=== PATIENT | female | born 1985 | race Caucasian/White ===

== ENCOUNTER 2018-09-04 18:10 | Outpatient (CLI) | payer OTHER, SELFPAY ==
[2018-09-04 18:29] VITALS: BMI 33.0
--- NOTE | 2018-09-06 07:03 | OB.TRI.NOTE ---
- Problem List (1) Decreased movement Status: Acute History of Present Illness Date of Service: 09/04/18 Was patient seen by the physician?: No Reason For Visit: DECREASED MOVEMENT Final CARROLL: 10/23/18 Gestational age: 33 Weeks and 2 Days History of Present Illness: Pt presents with DFM Allergies No Known Allergies Allergy (Verified 09/04/18 18:36) NST - FHR Rate Baby A Baseline: 120 Variability:: Moderate Accelerations:: 15 x 15 Decelerations:: None NST Reactive:: Yes Uterine Activity:: Quiet Impression/Plan - Pt feeling FM prior to discharge - NST reactive
== END 2018-09-04 18:55 | disposition home or self-care (01) ==
LOC: WPOUT 18:23 → WP 18:25
PROVIDERS: Family Provider Family Medicine; PCP Family Medicine; Referring Provider Obstetrics & Gynecology; Visit Provider Obstetrics & Gynecology
DX: O36.8130 Decreased fetal movements, third trimester, not applicable or unspecified (principal); Z3A.33 33 weeks gestation of pregnancy
CPT/HCPCS: 59025; 59050; 99218; G0378

== ENCOUNTER 2018-10-18 17:25 | Outpatient (CLI) | payer OTHER, SELFPAY ==
[2018-10-18 17:57] VITALS: BMI 34.2
--- NOTE | 2018-10-19 07:14 | OB.TRI.NOTE ---
History of Present Illness Was patient seen by the physician?: No Reason For Visit: RULE OUT LABOR Date of Service: 10/18/18 Final CARROLL: 10/23/18 Gestational age: 39 Weeks and 3 Days Allergies No Known Allergies Allergy (Verified 10/18/18 17:59) NST - FHR Rate Baby A Baseline: 125 Variability:: Moderate Accelerations:: 15 x 15 Decelerations:: None NST Reactive:: Yes Uterine Activity:: irregular Impression/Plan Reactive NST for false labor
== END 2018-10-18 19:30 | disposition home or self-care (01) ==
LOC: WPOUT 17:48 → WP 17:49
PROVIDERS: Family Provider Family Medicine; PCP Family Medicine; Referring Provider Obstetrics & Gynecology; Visit Provider Obstetrics & Gynecology
DX: O47.1 False labor at or after 37 completed weeks of gestation (principal); Z3A.39 39 weeks gestation of pregnancy
CPT/HCPCS: 59025; 59050; 99218; G0378

== ENCOUNTER 2018-10-22 06:55 | Inpatient (IN) | payer OTHER, SELFPAY ==
[2018-10-22] MEDS: Lactated Ringers 1,000 ML 50 ML IV ×2 (08:00→09:31)
[2018-10-22 08:35] VITALS: BMI 35.0
[2018-10-22 08:46] LABS: Absolute Lymphocyte Count 2.15 X10^3/uL (0.83-4.51); Absolute Neutrophil Count 9.6 X10^3/uL (2.0-7.7); Basophil# 0.05 X10^3/uL; Basophil% 0.4 % (0-1); Eosinophil# 0.15 X10^3/uL; Eosinophils% 1.2 % (0-5); Hematocrit 37.9 % (37-47); Hemoglobin 12.9 g/dL (12.0-15.0); Lymphocyte # 2.15 X10^3/ul (4.0); Lymphocyte % 16.5 % (19-41); Mean Corpuscular Hgb 29.9 pg (27.0-32.0); Mean Corpuscular Volume 87.9 fL (81-99); Mean Platelet Vol. 8.7 fl (6.2-12.0); Monocyte# 0.94 X10^3/uL; Monocyte% 7.2 % (0-10); NRBC Flagged by Analyzer 0 % (0-5); Neutrophil # 9.56 X10^3/uL (2.7-7.7); Neutrophil % 73.3 % (47-70); Platelet Count 249 K/mm3 (150-450); RBC Distribution Width CV 13.7 % (11.6-14.6); Red Blood Count 4.31 M/mm3 (4.2-5.4)
[2018-10-22] MEDS: Oxytocin 30 units/NS 500 ml 30 UNITS/500 ML IV.SOLN IV (09:40)
--- NOTE | 2018-10-22 10:23 | HP.PCM_ITS ---
History Date of Admission: 10/22/18 Final CARROLL: 10/23/18 Gestational age: 39 Weeks and 6 Days History of this : This is a 32 year-old, G [], P [], at 39 weeks gestational age. Surgical History: Surgical History (Last Updated 10/22/18 @ 11:16 by Linda Mueller) History of bladder surgery Z98.890 History of cholecystectomy Z90.49 Allergies No Known Allergies Allergy (Verified 10/22/18 08:42) Home Medications: Home Medications Dha 1 tab PO DAILY 04/10/16 Smoking Status: Never smoker Alcohol: None Heart Tracin with mod variability, accels TOCO Analysis: Irregular ctxs History Past Pregnancies: Past Pregnancies Delivery Date Name GA/Weeks Outcome Route Weight Infant Gender Labor Length Anesthesia Delivery Location Provider FOB Labs: Se [facility] H&P Expected Delivery Method: Spontaneous Vaginal Physical Exam General: Alert, Oriented x3 Abdomen: Soft, Non Tender, Non-Distended, Gravid BODY SPECIALIST: Normal external genitalia Estimated gestational size: Appropriate for gestational size Presentation: Cephalic Cervix Dilation (cm): 5.5 - AROM clear fluid Station: -2 Effacement (%): 80 Assessment/Plan All Active Problems Decreased movement (Acute) This is a 32 year-old, G 3, P 1011, at 39&6 weeks gestational age. Admit to L&D Elective induction - a/p AROM, start pitocin GBS negative Pain - epidural EFW less than 4500g, patient with adequate pelvis Routine care
[2018-10-22] MEDS: fentaNYL-bupivacaine (epidural) 100 ML BAG EPIDURAL (10:36)
[2018-10-22] MEDS: Mag Hydrox/Al Hydrox/Simeth 30 ML UDC PO (12:19)
[2018-10-22] MEDS: Oxytocin 30 units/NS 500 ml 30 UNITS/500 ML IV.SOLN 334 UNITS IV (13:16)
--- NOTE | 2018-10-22 13:37 | PCM.OPRPT ---
Vaginal Delivery Maternal Presentation: Elective Induction Method of Induction: Pitocin, Amniotomy Amniotic Membrane Rupture Type: Artificial Amniotic Fluid Description: Clear Final CARROLL: 10/23/18 Gestational age: 39 Weeks and 6 Days Date of Procedure: 10/22/18 Pre-Operative Diagnosis: Elective induction Post-Operative Diagnosis: Same Surgery/ Procedure Performed: Spontaneous Vaginal Delivery Type of Anesthesia: Epidural Description of Procedure: Patient prepped & draped when C/C/+3. She pushed to deliver head. Shoulders & body easily followed. placed on maternal abdomen where 3VC clamped & cut. Placenta delivered with gentle traction. Good uterine tone obtained. Presentation: LAI Placental Delivery Description: Expressed Placenta Disposition: [facility] Cord Vessel Description: 3 Vessels Cord Entanglement: Around neck x 1, tight Estimated Blood Loss: 200ml Infant A gender: Male (1 minute): 9 (5 minute): 9 Episiotomy Description: None Laceration: Vaginal Extension/lac - bilateral - repaired with 3-0 vicryl Medications given after delivery: IV Pitocin Complications: None
[2018-10-22] MEDS: Oxytocin 30 units/NS 500 ml 30 UNITS/500 ML IV.SOLN 167 UNITS IV (13:46)
[2018-10-22] MEDS: Acetaminophen 500 MG Tablet 1000 MG PO (15:56)
[2018-10-22 19:35] VITALS: BP 129/64; PULSE 78; RESP 18; TEMP 36.7; O2SAT 99
[2018-10-22] MEDS: Ibuprofen 600 MG Tablet PO (19:44)
[2018-10-23] VITALS: BP 121/69; PULSE 84; RESP 18; TEMP 36.1; O2SAT 97
[2018-10-23] MEDS: Acetaminophen 500 MG Tablet 1000 MG PO ×2 (00:17→08:01)
[2018-10-23] MEDS: Ibuprofen 600 MG Tablet PO ×2 (04:32→16:32)
[2018-10-23 04:33] VITALS: BP 126/58; PULSE 76; RESP 18; TEMP 36.2; O2SAT 95
--- NOTE | 2018-10-23 08:03 | PCM.PN.OB ---
Subjective: No complaints - Physical Exam General: Alert, Oriented x3 Abdomen: Soft, Non Tender, Non-Distended - ff mid & below umb Extremities: No Calf Tenderness Neurological: Cranial nerves II-XII grossly intact Vital Signs Temp Pulse Resp BP Pulse Ox 97.1 F L 76 18 126/58 H 95 10/23/18 04:33 10/23/18 04:33 10/23/18 04:33 10/23/18 04:33 10/23/18 04:33 Oxygen Delivery Method Room Air Weight: 204 lb Body Mass Index (BMI) 35.0 Laboratory Tests Past 24 Hrs 10/22/18 10/22/18 08:20 08:20 WBC 13.0 H RBC 4.31 Hgb 12.9 Hct 37.9 MCV 87.9 MCH 29.9 MCHC 34.0 RDW Std Deviation 44.0 H RDW Coeff of Zonia 13.7 Plt Count 249 MPV 8.7 Immature Gran % (Auto) 1.400 H Neut % (Auto) 73.3 H Lymph % (Auto) 16.5 L [place] % (Auto) 7.2 Eos % (Auto) 1.2 Baso % (Auto) 0.4 Absolute Neuts (auto) 9.6 H Absolute Lymphs (auto) 2.15 Absolute Nucleated RBC 0.00 Nucleated RBC % 0 Blood Type A NEGATIVE Antibody Screen NEGATIVE Medical Necessity - Tobacco Use Smoking Status: Never smoker Assessment/Plan All Active Problems (Last Updated 10/22/18 @ 11:16 by Linda Mueller) Decreased movement (Acute) PPD#1 D/c home later today
--- NOTE | 2018-10-23 08:09 | DCINST_ITS ---
Discharge Diet: No Restrictions Discharge Activity: May Drive, May Shower May resume sexual activity in: 6 weeks Weight Bearing Status: Weight bearing as tolerated Additional Instructions: If you experience any of the following, contact your healthcare provider. * Bleeding that soaks a pad every hour for 2 hours * Fever 100.4 or higher * Unrelieved incision or abdominal pain * Swelling, redness, discharge or bleeding from your incision or episiotomy site * Your incision begins to separate * Problems urinating (including inability to urinate or burning while urinating). * Visual changes * Severe headache * Flu-like symptoms * Pain or redness in one of both of your breasts * Pain, warmth, tenderness or swelling in your legs, especially the calf area * Frequent nausea and vomiting * Symptoms of depression or anxiety If you experience any of the following, call 911 or go to the nearest Emergency Room. * Chest pain * Problems breathing * Seizure activity * Partial or complete paralysis of a body part, slurred speech, weakness or drooping of the face, or a sudden inability to walk or hold your balance Allergies/Adverse Reactions: Allergies No Known Allergies Allergy (Verified 10/22/18 08:42) Medications to take at Discharge Dha 1 tab PO DAILY 04/10/16 Acetaminophen [Tylenol] 1,000 mg PO Q8H PRN PRN tablet 10/23/18 Ibuprofen [Motrin] 600 mg PO Q6H PRN PRN tablet 10/23/18 Primary Care Physician: Malcolm Valencia [Primary Care Provider] - Test Results: Test results from this visit will be discussed in further detail at your follow- up appointment, if applicable.
--- NOTE | 2018-10-23 08:09 | PCM.DCVAG ---
Discharge Diet: No Restrictions Discharge Activity: May Drive, May Shower May resume sexual activity in: 6 weeks Weight Bearing Status: Weight bearing as tolerated Additional Instructions: If you experience any of the following, contact your healthcare provider. Bleeding that soaks a pad every hour for 2 hours Fever 100.4 or higher Unrelieved incision or abdominal pain Swelling, redness, discharge or bleeding from your incision or episiotomy site Your incision begins to separate Problems urinating (including inability to urinate or burning while urinating). Visual changes Severe headache Flu-like symptoms Pain or redness in one of both of your breasts Pain, warmth, tenderness or swelling in your legs, especially the calf area Frequent nausea and vomiting Symptoms of depression or anxiety If you experience any of the following, call 911 or go to the nearest Emergency Room. Chest pain Problems breathing Seizure activity Partial or complete paralysis of a body part, slurred speech, weakness or drooping of the face, or a sudden inability to walk or hold your balance Allergies/Adverse Reactions: Allergies No Known Allergies Allergy (Verified 10/22/18 08:42) Medications to take at Discharge Dha 1 tab PO DAILY 04/10/16 Acetaminophen [Tylenol] 1,000 mg PO Q8H PRN PRN tablet 10/23/18 Ibuprofen [Motrin] 600 mg PO Q6H PRN PRN tablet 10/23/18 Primary Care Physician: Malcolm Valencia [Primary Care Provider] - Test Results: Test results from this visit will be discussed in further detail at your follow-up appointment, if applicable.
[2018-10-23 08:20] VITALS: BP 120/62; PULSE 80; RESP 16; TEMP 37.3; O2SAT 97
[2018-10-23 13:15] VITALS: BP 133/72; PULSE 81; RESP 16; TEMP 36.4
[2018-10-23 16:35] VITALS: BP 119/65; PULSE 76; TEMP 36.5
== END 2018-10-23 17:00 | disposition home or self-care (01) | DRG 807 ==
PROVIDERS: Obstetrics & Gynecology; Admitting Provider Obstetrics & Gynecology; Family Provider Family Medicine; PCP Family Medicine; Referring Provider Obstetrics & Gynecology; Visit Provider Obstetrics & Gynecology
DX: O36.8130 Decreased fetal movements, third trimester, not applicable or unspecified (principal); Z37.0 Single live birth; O69.1XX0 Labor and delivery complicated by cord around neck, with compression, not applicable or unspecified; O70.0 First degree perineal laceration during delivery; Z3A.39 39 weeks gestation of pregnancy
CPT/HCPCS: 59025; 59050; 85025; 85461; 86850; 86900; 90384; 99218; J7120; G0378; J2790; J3490

== ENCOUNTER 2019-10-06 16:34 | Emergency (ER) | payer OTHER, SELFPAY ==
[2019-10-06 16:35] VITALS: BP 118/66; PULSE 70; RESP 16; TEMP 36.5; O2SAT 97; BMI 29.2
--- NOTE | 2019-10-06 16:46 | ED.VIS.GEN ---
History of Present Illness Chief Complaint: Abd Pain Informant: Patient Onset: Today Narrative: Patient states that she got up today in her normal physical state. She states that just after 3 she was on the couch and developed a severe lower abdominal pain that radiated to her back. She notes some associated nausea and near syncopal feeling. She states that she has had prior ovarian cyst and wonders if one has ruptured. She states that she is not on any control or hormonal supplementation. Last menstrual period was about 3 weeks ago. She is currently breast-feeding. No fevers. Prior cholecystectomy otherwise no other abdominal surgeries. Past Medical History - Allergies and Home Meds Allergies/Adverse Reactions: Allergies No Known Allergies Allergy (Verified 10/06/19 16:35) Primary Care Physician: Malcolm Valencia MD [Primary Care Provider] - Smoking Status: Never smoker Review of Systems General: Denies: Chills, Fever, Sweats Eyes: Denies: Visual changes - bilaterally, Diplopia ENT: Denies: Rhinorrhea, Sore throat Cardiovascular: Denies: Chest pain, Palpitations Respiratory: Denies: Dyspnea, Cough, Dyspnea on exertion Gastrointestinal: Reports: Abdominal pain, Nausea. Denies: Vomiting, Diarrhea, Melena, Hematochezia Genitourinary: Denies: Dysuria, Hematuria, Frequency Musculoskeletal: Denies: Back pain, Extremity Pain Skin: Denies: Rash, Wounds Neurological: Denies: Headache, Weakness, Numbness Physical Exam Vital Signs/Narrative: Vital Signs Temp Pulse Resp BP Pulse Ox 10/06/19 16:35 97.7 F L 70 16 118/66 97 Inital Vital Signs reviewed: Yes General: Well nourished, Well developed, No Acute Distress Head: Normocephalic, Atraumatic Eyes: Perrl, EOMI ENT: Moist mucous membranes, No rhinorrhea Neck: Supple, Nontender Cardiovascular: Regular rate, Regular rhythm, No murmurs Respiratory: No distress, CTA bilaterally, Chest nontender Abdomen: Soft, Nondistended, Normal bowel sounds, Tender. Negative for: Guarding, Rebound tenderness Back: Nontender, Normal Inspection Extremities: Nontender, No edema Skin: Normal color, No rash Neurological: Alert, Oriented x3, Cranial nerves II-XII grossly intact, Normal Strength, Normal Sensation Psychological: Normal affect, Normal Mood ED Disposition - Plan for ED Patient: Disposition: Home or Assisted Living Diagnosis: Acute pelvic pain, female, Ruptured ovarian cyst Instructions: ED Cyst Ovarian Prescriptions: Ibuprofen [Motrin] 800 mg PO TID PRN PRN #20 tab PRN Reason: pain Prescription Printed Referrals: Janeth Ruiz MD [STAFF PHYSICIAN] - As soon as possible
[2019-10-06 17:07] LABS: Absolute Neutrophil Count 11.1 X10^3/uL (2.0-7.7); Basophil# 0.04 X10^3/uL; Basophil% 0.3 % (0-1); Eosinophil# 0.13 X10^3/uL; Eosinophils% 0.9 % (0-5); Hematocrit 42.4 % (37-47); Hemoglobin 14.1 g/dL (12.0-15.0); Lymphocyte % 14.2 % (19-41); Mean Corp Hgb Conc 33.3 g/dL (32-36); Mean Corpuscular Hgb 29.9 pg (27.0-32.0); Mean Corpuscular Volume 89.8 fL (81-99); Mean Platelet Vol. 8.3 fl (6.2-12.0); Monocyte# 0.72 X10^3/uL; Monocyte% 5.1 % (0-10); NRBC Flagged by Analyzer 0 % (0-5); Neutrophil % 79.1 % (47-70); Platelet Count 285 K/mm3 (150-450); RBC Distribution Width CV 12.2 % (11.6-14.6); RBC Distribution Width SD 40.3 fl (35.1-43.9); Red Blood Count 4.72 M/mm3 (4.2-5.4)
[2019-10-06] MEDS: Ondansetron 4 MG/2 ML Vial IV (17:11)
[2019-10-06] MEDS: Ketorolac 30 MG/ML Syringe IV (17:11)
[2019-10-06 17:26] LABS: AST(SGOT) 12 U/L (15-37); Alanine Aminotransfer ALT/SGPT 29 U/L (13-56); Albumin, Serum 3.6 g/dL (3.2-5.0); Alkaline Phosphatase 34 U/L (45-117); Anion Gap 6 (5-15); BUN 17 mg/dL (7-18); BUN/Creat Ratio 19.9 RATIO (10-20); Calcium,Total 8.7 mg/dL (8.5-10.1); Chloride 105 mmol/L (98-107); Creatinine, Serum 0.85 mg/dL (0.55-1.02); EST Glomerular Filtration Rate 82 mL/min (>60); Est Glom Filt Rate - Afr Amer 99 mL/min (>60); Estimated Creatinine Clearance 82.81 ml/min; Globulin 3.5 g/dL (2.2-4.2); Glucose 107 mg/dL (74-106); Potassium 3.6 mmol/L (3.5-5.1); Protein, Total 7.1 g/dL (6.4-8.2); Sodium Level 137 mmol/L (136-145)
[2019-10-06 17:36] LABS: Internal QC Validated? YES +Cl - CLEAR BKGD; Pregnancy, Serum, hCG Quali. NEGATIVE Negative
--- NOTE | 2019-10-06 17:39 | US_ITS ---
PROCEDURE: ULTRASOUND OF THE FEMALE PELVIS - COMPLETE REASON FOR EXAM: Female, 33 years old. Sharp lower abdominal pain suddenly TECHNIQUE: Transabdominal and Transvaginal TECHNICAL QUALITY: Adequate. COMPARISON: None. FINDINGS: The uterus is anteverted and is in a midline position. The uterus measures 7.1 x 4.5 x 3.3 cm. There is no demonstrated myometrial mass. The endometrium measures 6 mm in thickness, and is hyperechoic. There is no demonstrated endometrial mass. Normal uterine cervix. The right ovary is visualized. The right ovary measures 2.1 x 1.1 x 1.6 cm. There is no right ovarian cyst or ovarian mass. There is no visualized right adnexal mass or complex lesion. The left ovary is visualized. The left ovary measures 4.5 x 2.5 x 1.9 cm. There is no left ovarian cyst or ovarian mass. There is no visualized left adnexal mass or complex lesion. Normal color vascular flow and Doppler signal is demonstrated in both ovaries. There is a moderate amount of fluid in the cul-de-sac. US/Transvaginal Non- IMPRESSION: Moderate amount of free fluid in the pelvic cul-de-sac. This can be associated with rupture of an ovarian cyst or an inflammatory process. Electronically Signed: Juan Antonio Pitts MD at 18:49 EDT , Service support ,
[2019-10-06 18:11] LABS: Bacteria 0 SEEN /hpf (None Seen); Mucous, Urine 0 SEEN /hpf (<or=2+); Red Blood Cells-Urine 0 SEEN /hpf (0-5)
[2019-10-06 18:13] LABS: Color, Urine Yellow (Yellow); Glucose, Dipstick Normal (Normal); Ketone-Dipstick Negative (Negative); Leukocyte Esterase-Dipstick 100 /ul (Negative); Nitrite-Dipstick Negative (Negative); Occult Blood-Urine Negative /ul (Negative); Protein-Dipstick Negative (Negative); Specific Gravity, Urine 1.015 (1.002-1.030); Urine Bilirubin Dipstick Negative (Negative); Urine Clarity Sl. Cloudy (Clear); Urine Urobilinogen Normal (Normal)
[2019-10-06 18:21] LABS: Squamous Epithelial Cells - UA 0-5 SEEN /hpf (5-10); White Blood Cells 5-10 SEEN /hpf (0-5)
[2019-10-06 18:22] LABS: Amorphous Sediment 1+ URATE
--- NOTE | 2019-10-06 18:56 | CT_ITS ---
STUDY: CT ABDOMEN AND PELVIS WITHOUT CONTRAST REASON FOR EXAM: Female, 33 years old. Lower abdominal pain. Elevated white count of 14,000. History of prior cholecystectomy. RADIATION DOSAGE (If Supplied By Facility): CTDIvol = ( 14.36 ) mGy, DLP = ( 965.49 ) mGycm TECHNIQUE: Transaxial images were obtained from the dome of the diaphragm to the symphysis pubis without oral contrast, and without intravenous contrast. Sagittal and coronal images were reconstructed. Individualized dose optimization techniques were used for this CT. COMPARISON: Endovaginal ultrasound, October 06, 2019. FINDINGS: The visualized lung bases are unremarkable. The visualized portions of the heart are within normal limits. Normal liver. There are surgical clips in the gallbladder fossa consistent with a prior cholecystectomy. Normal spleen. Normal pancreas. Normal bilateral adrenal glands. Normal right kidney. Normal left kidney. Normal visualized stomach. Normal small intestine. Normal colon. The appendix is visualized and appears normal. Normal abdominal aorta. Normal inferior vena cava. Normal retroperitoneum. Normal urinary bladder. Normal-appearing uterus and right ovary. There is slight prominence left ovary multiple follow-up. There is free fluid in posterior cul-de-sac without free air. There is no pelvic lymphadenopathy. Normal abdominal wall. Normal osseous structures. CT/Abdomen/Pelvis W IV Cont ONLY IMPRESSION: 1. Free fluid in the pelvis with slight prominence of the left ovary multiple follicles. 2. Otherwise normal CT of the abdomen and pelvis. Electronically Signed: Mike Guy DO at 19:34 EDT Tel [phone], Service support ,
[2019-10-06 19:17] VITALS: BP 110/68; PULSE 66; RESP 17; O2SAT 99
[2019-10-06 19:52] VITALS: BP 112/68; PULSE 70; RESP 14; O2SAT 99
== END 2019-10-06 19:58 | disposition home or self-care (01) ==
PROVIDERS: Emergency Provider Emergency Medicine; PCP Family Medicine
DX: R10.2 Pelvic and perineal pain (principal); N83.209 Unspecified ovarian cyst, unspecified side
CPT/HCPCS: 74177; 76830; 80053; 81001; 84703; 85025; 93976; 96374; 96375; 99283; J7030; Q9967; A4216; J2405

== ENCOUNTER → 2022-11-24 | Outpatient (CLI) | payer OTHER, SELFPAY ==
[2022-11-24 09:13] LABS: Absolute Lymphocyte Count 1.58 X10^3/uL (0.83-4.51); Absolute Neutrophil Count 8.8 X10^3/uL (2.0-7.7); Basophil# 0.04 X10^3/uL; Basophil% 0.4 % (0-1); Eosinophil# 0.14 X10^3/uL; Eosinophils% 1.3 % (0-5); Hematocrit 38.7 % (37-47); Hemoglobin 12.7 g/dL (12.0-15.0); Lymphocyte # 1.58 X10^3/ul (0.83-4.51); Lymphocyte % 14.3 % (19-41); Mean Corp Hgb Conc 32.8 g/dL (32-36); Mean Corpuscular Hgb 29.7 pg (27.0-32.0); Mean Corpuscular Volume 90.4 fL (81-99); Mean Platelet Vol. 8.2 fl (6.2-12.0); Monocyte% 3.6 % (0-10); NRBC Flagged by Analyzer 0 % (0-5); Neutrophil # 8.78 X10^3/uL (2.7-7.7); Neutrophil % 79.5 % (47-70); Platelet Count 238 K/mm3 (150-450); RBC Distribution Width SD 42.5 fl (35.1-43.9); Red Blood Count 4.28 M/mm3 (4.2-5.4)
[2022-11-24 09:35] LABS: Glucose Challenge Gest 1H 50g 169 mg/dL (70-140)
[2022-11-24 10:07] LABS: Syphilis Antibodies Non-reactive
== END | disposition home or self-care (01) ==
PROVIDERS: PCP Family Medicine; Referring Provider Advanced Practice Midwife; Visit Provider Advanced Practice Midwife
DX: Z34.92 Encounter for supervision of normal pregnancy, unspecified, second trimester (principal)
CPT/HCPCS: 36415; 82950; 85025; 86780; 86850; 86900; 86901

== ENCOUNTER → 2022-12-01 | Outpatient (CLI) | payer OTHER, SELFPAY ==
[2022-12-01 07:49] LABS: Glucose GTT-Gestation. Fasting 86 mg/dL (<105)
[2022-12-01 08:41] LABS: Glucose GTT-Gestational 1 Hr 199 mg/dL (<190)
[2022-12-01 10:04] LABS: Glucose GTT-Gestational 2 Hr 168 mg/dL (<165)
[2022-12-01 11:21] LABS: Glucose GTT-Gestational 3 Hr 89 L (<145)
== END | disposition home or self-care (01) ==
LOC: LAB 06:45
PROVIDERS: PCP Family Medicine; Referring Provider Obstetrics & Gynecology; Visit Provider Obstetrics & Gynecology
DX: O99.810 Abnormal glucose complicating pregnancy (principal); Z3A.00 Weeks of gestation of pregnancy not specified
CPT/HCPCS: 36415; 82951; 82952

== ENCOUNTER 2023-02-04 05:05 | Inpatient (IN) | payer OTHER, SELFPAY ==
[2023-02-03] MEDS: Oxytocin 15 Units/NS 250ml 15 UNITS/250 ML IV.SOLN 83 UNITS IV (09:30)
[2023-02-04] VITALS (18 sets, daily range): BP systolic 105–133; BP diastolic 45–72; PULSE 72–106; RESP 15–19; TEMP 35.9–36.6; O2SAT 96–98; BMI 34.3
[2023-02-04] MEDS: Lactated Ringers 1,000 ML 999 ML IV (05:25)
[2023-02-04 05:41] LABS: Absolute Neutrophil Count 6.8 X10^3/uL (2.0-7.7); Basophil# 0.03 X10^3/uL; Basophil% 0.3 % (0-1); Eosinophil# 0.15 X10^3/uL; Eosinophils% 1.4 % (0-5); Hematocrit 39.5 % (37-47); Hemoglobin 13.1 g/dL (12.0-15.0); Lymphocyte % 22.2 % (19-41); Mean Corp Hgb Conc 33.2 g/dL (32-36); Mean Corpuscular Hgb 29.8 pg (27.0-32.0); Mean Platelet Vol. 8.7 fl (6.2-12.0); Monocyte# 0.89 X10^3/uL; Monocyte% 8.6 % (0-10); NRBC Flagged by Analyzer 0 % (0-5); Neutrophil # 6.84 X10^3/uL (2.7-7.7); Neutrophil % 66.1 % (47-70); Platelet Count 252 K/mm3 (150-450); RBC Distribution Width CV 13.6 % (11.6-14.6); RBC Distribution Width SD 44.7 fl (35.1-43.9); Red Blood Count 4.39 M/mm3 (4.2-5.4); White Blood Count 10.4 K/mm3 (4.4-11.0)
[2023-02-04] MEDS: Acetaminophen 500 MG Tablet 1000 MG PO ×3 (06:07→18:26)
[2023-02-04 06:28] LABS: Bedside Glucose 87 mg/dL (74-106)
[2023-02-04] MEDS: Lactated Ringers 1,000 ML 150 ML IV (06:31)
[2023-02-04] MEDS: Sodium Citrate/Citric Acid 30 ML UDC PO (07:00)
[2023-02-04] MEDS: Cefazolin 2 GM in 0.9% Normal Saline (100mL Bag) 100 ML IV (07:14)
--- NOTE | 2023-02-04 08:00 | FALS_PTH ---
PATIENT: KATHARINE ESCALANTE LOC: [facility] U#:[id number] AGE/SX: 37/F ROOM: [facility] RE02/04/[address]: Dr. Janeth Ruiz, MDDOB: 1985 BED: 1 DIS: 02/05/2023 SPEC #: [id number] RECD: 02/04/23 09:03 STATUS: KOLBY VIKI #: [id number] NAHEED: 02/04/23 08:[address]: Janeth Ruiz DEPT: SURGICAL PATHOLOGY RECD BY: Rhina Mirza ENTERED: 02/04/23 12:14 SP TYPE: FALL TUBES OTHR DR: Marta Baker PA-C Tissues: Fallopian tube Procedures: Surgery Specimen Level II HEADER OPERATION: Tubal ligation PRE-OP DIAGNOSIS: Tubal ligation TISSUE SUBMITTED: Fallopian tubes MICROSCOPIC DIAGNOSIS Bilateral fallopian tubes, salpingectomy: Bilateral fallopian tubes, no pathologic diagnosis. A left paratubal cyst. SJ: 02/05/2023 MICROSCOPIC DESCRIPTION Slides are reviewed. GROSS DESCRIPTION Received in fixative is one container labeled with the patient's name and designated bilateral fallopian tubes. Received in fixative is one container labeled with the patient's name and designated bilateral fallopian tubes. The specimen consists of bilateral fallopian tubes including fimbrial ends. Left tube is identified by a suture. The right fallopian tube measures 5 cm in length and 0.7 cm in diameter. The left fallopian tube measures 4.5 cm in length and 0.6 cm in diameter. A small paratubal cyst is also noted adjacent to left fallopian tube measuring 1.0 cm in greatest dimension. Grades 9 12 Tutor sections are submitted in two cassettes as follows: 1 - right fallopian tube, 2 - left fallopian tube and paratubal cyst / SJ:cc:ana m TC:4 CPT: 24396 x2
[2023-02-04 08:29] LABS: Syphilis Antibodies Non-reactive
[2023-02-04] MEDS: Ketorolac 30 MG/ML Syringe IV ×3 (09:21→21:36)
--- NOTE | 2023-02-04 09:59 | EX.PCM.OBRPT ---
Details Operative Information Date of Procedure: 02/04/23 Pre-Operative Diagnosis: Breech, 39 weeks, GDMA1, AMA, desires sterilization Post-Operative Diagnosis: Same, live female Indications for : Breech Classification: Scheduled Procedure Type: - (Bilateral Salpingectomy ) passenger tire inspector #1: Janeth Ruiz passenger tire inspector #2: Mariam Mccullough Type of Anesthesia: Spinal Special Medications: Abbey Antibiotic Given: Ancef 2 grams IV x1 Drain: Abbasi to straight drain Estimated Blood Loss: 600 Fluids Replaced: 1000 Procedure Start Time: 07:35 Procedure Stop Time: 08:13 Time of Delivery: 07:39 Findings Description of Procedure: After informed consent was obtained the patient was taken to the operating room she was given spinal anesthesia. He was placed in the supine position. She was then prepped and draped in normal sterile fashion. Once spinal anesthesia was found to be adequate skin incision was made with a scalpel in a Pfannenstiel fashion. It was carried down to the underlying layer of the fascia. Fascia was then incised midline with scapel and extended laterally using curved cao. 2 straight Jason's were placed in the superior aspect of the fascial edge and the rectus muscles were dissected off bluntly. At this time the rectus muscles were in the midline bluntly and Using blunt force the peritoneum was then entered. Uterine incision was made in a low transverse fashion with the scalpel and then entered bluntly. Gentle opposing traction was placed to extend the uterine incision. The membranes were ruptured amniotic fluid clear. Infant's buttocks was then brought to the uterine incision was delivered atraumatically followed by the arms and head without difficulty. At this time delayed cord clamping was performed mouth nose were suctioned. Infant was then handed to the waiting nursery team. The placenta was then removed with gentle traction. The uterus was removed from the intra-abdominal cavity is wrapped in a moist lap. He was cleared of all clots and debris using a moist lap. Ring clamps were placed on the uterine angles. #1 Vicryl suture was used in a running locked fashion for the first layer. At this time then the uterus was placed back into abdominal cavity uterine incision was evaluated and noted to be of good hemostasis. Tubes and ovaries were evaluated they were normal. The tubes were grasped in an avascular area with the Edith ligasure used to coagulate and ligate along mesosalpinx to remove tubes- repeat both sides, good hemostasis. Great hemostasis was appreciated at this time the uterine incision was again evaluated good hemostasis was appreciated. Abbey placed over uterine incision. The peritoneum was grasped with Kellys. Peritoneum was reapproximated using #2 Vicryl suture in a running fashion. Abbey placed over rectus muscle. The fascia was then reapproximated using #1 Vicryl in a running fashion. Subcutaneous layer was irrigated with NS and evaluated and Bovie was used for any small oozing that was noted, bovie used for any oozing, #2-0 plain gut suture was then used to reapproximate the subcutaneous layer 4-0 Vicryl on a Bimal needle was used to reapproximate the skin in a subcutaneous fashion. Dry sterile dressing was applied. Instrument lap needle count were correct ?2. Anticipated normal postoperative course for this patient. Presentation: Positive for Vertex Amniotic Membrane Rupture Type: Artificial Amniotic Fluid Description: Clear Placental Delivery Description: Expressed Placenta Disposition: [facility] Specimen(s) Sent to Pathology: bilateral fallopian tubes Cord Vessel Description: 3 Vessels Cord Entanglement: None A Gender: Female (1 minute): 9 (5 minute): 9 Delayed Cord Clamping: Yes Complications Risks of Surgery Discussed w/Patient: Bleeding, Anesthesia Risks, Infection, Permanency, Injury to surrounding structure(s) including bowel and bladder and Availability of other non-permanent control options Complications: none
[2023-02-04 10:04] LABS: Bedside Glucose 96 mg/dL (74-106)
[2023-02-04] MEDS: Lactated Ringers 1,000 ML 100 ML IV (11:39)
[2023-02-04] MEDS: 0.9% Saline Lock 10 ML Syringe IV ×2 (18:26→21:37)
[2023-02-04] MEDS: Enoxaparin 40 MG/0.4 ML Syringe SC (20:17)
[2023-02-05 00:29] VITALS: BP 111/46; PULSE 72; RESP 16; TEMP -13.7; TEMP 7.3; O2SAT 98
[2023-02-05] MEDS: Acetaminophen 500 MG Tablet 1000 MG PO ×3 (00:37→13:03)
[2023-02-05] MEDS: Ketorolac 30 MG/ML Syringe IV (03:40)
[2023-02-05] MEDS: 0.9% Saline Lock 10 ML Syringe IV (03:40)
[2023-02-05 03:45] VITALS: BP 106/46; PULSE 67; RESP 18; TEMP 36.2; O2SAT 98
[2023-02-05 05:59] LABS: Hematocrit 37.9 % (37-47); Hemoglobin 12.8 g/dL (12.0-15.0); Mean Corp Hgb Conc 33.8 g/dL (32-36); Mean Corpuscular Hgb 30.5 pg (27.0-32.0); Mean Corpuscular Volume 90.5 fL (81-99); Mean Platelet Vol. 8.4 fl (6.2-12.0); Platelet Count 230 K/mm3 (150-450); RBC Distribution Width CV 13.6 % (11.6-14.6); RBC Distribution Width SD 45.2 fl (35.1-43.9); Red Blood Count 4.19 M/mm3 (4.2-5.4); White Blood Count 14.4 K/mm3 (4.4-11.0)
[2023-02-05 06:12] LABS: Bedside Glucose 83 mg/dL (74-106)
[2023-02-05 08:13] VITALS: BP 124/61; PULSE 77; RESP 16; TEMP 36.6
--- NOTE | 2023-02-05 08:45 | DS.PCM_ITS ---
Providers Date of Admission: 02/04/23 Primary Care Physician: Marta Baker PA-C Reason For Visit: PRIMARY C SECTION Diagnosis Discharge Diagnosis (1) Delivery by section: Status: Acute (2) Care and examination of lactating mother: Status: Acute Code(s): Z39.1 - Encounter for care and examination of lactating mother Plan POD 1 Primary C/S for breech presentation Pain control Increase ambulation support May desire discharge home this evening Medications at Discharge Home Medications acetaminophen 500 mg tablet 1,000 mg (2 x 500 mg) PO Q8H PRN PRN Mild Pain (1- 06/05) 10/23/18 ibuprofen 600 mg tablet 600 mg PO Q6H PRN PRN Mild Pain (1-06/05) 10/23/18 ibuprofen 800 mg tablet 800 mg PO TID PRN PRN pain #20 tabs 10/06/19 vit no.95-ferrous fumarate 28 mg-folic acid 800 mcg tablet () 1 tab PO DAILY supplement 02/04/23 sennosides 8.6 mg-docusate sodium 50 mg tablet (Stool Softener-Stimulant Laxative) 1 - 2 tab PO DAILY #0 tabs 02/05/23 Hospital Course Operations section Procedures None Summary of Care Provided Minutes Spent on Discharge: 20 Hospital Course: Patient was for a scheduled, primary section for breech presentation. Hospital course was uneventful. Physical Exam Narrative Dressing is dry and intact. independently. Ambulating and voiding without difficulty. Pain controlled with PO medication. May desire discharge home this evening. Const alert and no apparent distress General Appearance: cooperative and comfortable Exam Limitations: no limitations HEENT normocephalic Eyes General Eye: normal appearance of both eyes Neck full ROM General: normal visual inspection Chest Chest: symmetrical chest wall rise Resp normal respiratory effort and normal air movement Effort and Inspection: symmetric chest movement Auscultation: clear to auscultation bilaterally Cardio regular rate and regular rhythm GI normal to inspection, nondistended, normoactive bowel sounds Back/Spine normal ROM Extremity full ROM and no calf tenderness General Extremity: normal exam except as noted Skin no rashes or lesions noted Neuro CN's II-XII intact bilaterally Psych mental status grossly normal Weight / BMI Weight Weight: 200 lb 2.876 oz Body Mass Index (BMI) 34.3 ABG / Lab / Microbiology Data 11/10/23 05:50 Laboratory: Laboratory Results - last 24 hr 02/04/23 09:28: POC Glucose 96 02/04/23 10:40: Screen NEGATIVE, Baby's Blood Type O POSITIVE, Baby's WILBER NEGATIVE 02/05/23 05:48: POC Glucose 83 02/05/23 05:50: WBC 14.4 H, RBC 4.19 L, Hgb 12.8, Hct 37.9, MCV 90.5, MCH 30.5, MCHC 33.8, RDW Std Deviation 45.2 H, RDW Coeff of Zonia 13.6, Plt Count 230, MPV 8.4 Meaningful Use Info Meaningful Use Diagnoses (Choose all that apply): None applicable Discharge Plan Admission Admit Date/Time: 02/04/23 05:05 Primary Reason for Your Visit: Primary Section Attending Provider: Janeth Ruiz Primary Care Provider: Marta Baker Discharge Orders/Prescriptions Prescriptions: New sennosides-docusate sodium [Stool Softener-Stimulant Laxat] 8.6-50 mg Tablet 1 - 2 tab PO DAILY Qty: 0 0RF Continued acetaminophen 500 MG tablet 1,000 mg PO Q8H PRN PRN (Reason: Mild Pain (1-3/10)) 0RF ibuprofen 600 MG tablet 600 mg PO Q6H PRN PRN (Reason: Mild Pain (1-3/10)) 0RF PNV cmb#95-ferrous fumarate-FA [] 28 mg iron- 800 mcg tablet 1 tab PO DAILY No Action ibuprofen 800 MG tablet 800 mg PO TID PRN PRN (Reason: pain) Qty: 20 0RF Referrals / Follow Up: Marta Baker PA-C [Primary Care Provider] - Disposition Disposition (needs filled in before D/C Order can be placed): Home, Self Care
[2023-02-05] MEDS: Ibuprofen 600 MG Tablet PO ×2 (10:35→16:16)
[2023-02-05] MEDS: Senna/Docusate Sodium 1 Tablet PO (10:35)
[2023-02-05 14:46] VITALS: BP 99/51; PULSE 73; RESP 16; TEMP 36.6
[2023-02-09 10:16] LABS: Pathology Specimen OB SEE PATHOLOGY REPORT
[2023-02-09 13:09] LABS: Pathology Specimen OB SEE PATHOLOGY REPORT
--- NOTE | 2023-03-04 11:14 | NURSING ---
Corrected delivering provider
== END 2023-02-05 17:16 | disposition home or self-care (01) | DRG 785 ==
PROVIDERS: Admitting Provider Obstetrics & Gynecology; PCP Family Medicine; Visit Provider Obstetrics & Gynecology
PROC: 10D00Z1 Extraction of Products of Conception, Low, Open Approach (ICD-10-PCS; CPT 59514; principal; 2023-02-04 07:00)
DX: O32.1XX0 Maternal care for breech presentation, not applicable or unspecified (principal); O24.420 Gestational diabetes mellitus in childbirth, diet controlled; Z30.2 Encounter for sterilization; Z37.0 Single live birth; Z3A.39 39 weeks gestation of pregnancy; Z87.59 Personal history of other complications of pregnancy, childbirth and the puerperium
CPT/HCPCS: 59025; 59050; 82962; 85025; 85027; 85461; 86780; 86850; 86900; 86901; 88302; 99221; J7120; A4216; G0378; J2405; J2790